=== PATIENT | female | born 1940 | race Caucasian/White ===

== ENCOUNTER 2025-03-29 13:21 | Outpatient (OUT) | payer MEDICARE, SELFPAY ==
--- NOTE | 2025-03-29 14:00 | CA_ITS ---
Patient Name: HELENA MEJIA MR#: [id number] : 1940 Exam Date: 03/29/2025 Ordering Doctor: LAURA VIZCAINO ECHOCARDIOGRAM REPORT PROCEDURE: CA ECHO DOPPLER COMPLETE INDICATIONS: Increased shortness of breath, hypertension, h/o rheumatic fever COMPARISON: None. DESCRIPTION: COMPLETE ECHOCARDIOGRAM Real-time transthoracic echocardiography with 2D, M-mode, spectral and color flow Doppler performed. QUALITY: Technical quality was good. LEFT VENTRICLE: Normal chamber size. Mild concentric left ventricular hypertrophy. Systolic function. Estimated left ventricular ejection fraction is 60-65%. LV EF: Normal left ventricular ejection fraction, (>55%). DIASTOLIC: Normal diastolic function. ATRIAL SEPTUM: Visually appears intact. LEFT ATRIUM: Mild dilatation. RIGHT ATRIUM: Mild dilatation. RIGHT VENTRICLE: Normal chamber size. Normal right ventricular systolic function. TRICUSPID VALVE: Normal mobility and thickness. No stenosis with mild regurgitation. No evidence of pulmonary hypertension. RVSP 30 mmHg MITRAL VALVE: Normal mobility and thickness. No evidence of mitral valve stenosis. Mild mitral annular calcification. Trivial mitral regurgitation. AORTIC VALVE: Normal trileaflet appearance. Thickened aortic valve. Normal leaflet mobility. No evidence of aortic valve stenosis. No aortic regurgitation. AORTIC ROOT: Normal diameter and appearance, measuring 3.0 cm. PULMONIC VALVE: Not well visualized. No stenosis. No regurgitation. PERICARDIUM: No evidence of pericardial effusion. IVC: Collapses with inspirations. IVC is normal in size. PLEURA: CONCLUSION: 1. Mild concentric left ventricular hypertrophy with normal systolic function. Estimated LVEF is 60 to 65%. 2. Normal right ventricular size and systolic function. 3. Mild biatrial dilatation. 4. Mild tricuspid regurgitation. 5. Normal diastolic function. 6. Normal right-sided pressures. Adult Echocardiography Procedure Report Left Ventricle LVEDD (3.7 - 5.6 cm): 3.56 cm LVESD (2.2 - 4.0 cm): 2.48 cm LVIVS thickness (0.6 - 1.2 cm): 1.19 cm LVPW thickness (0.5 - 1.0 cm): 1.09 cm e': 0.10 m/s E - e': 6.18 LVOT Max Gradient: 3.84 mm[Hg] LVOT Area (cm2): 0.98 m/s Peak Velocity (LVOT): 0.98 m/s Mean Velocity (LVOT): 0.68 m/s LVOT Diameter 2.05 cm Left Ventricular Ejection Fraction: 60-65 % Left Atrium LA Volume Index (2D A2C): 22.11 ml/m2 Left Atrium Systolic Dimension: 2.66 cm Mitral Valve MV E to A Ratio: 0.68 Mitral Valve A-Wave Peak Velocity: 0.93 m/s Mitral Valve E-Wave Peak Velocity: 0.64 m/s Right Ventricle Aorta AO Root Diam: 3.00 cm Aortic Valve AoV Area (Peak Ron): 2.04 cm2, 2.04 cm2 AoV Area (VTI): 2.18 cm2, 2.18 cm2 Peak Velocity(Antegrade Flow): 1.58 m/s Peak Gradient(Antegrade Flow): 10.02 mm[Hg] Mean Velocity(Antegrade Flow): 1.01 m/s Mean Gradient(Antegrade Flow): 4.77 mm[Hg] Velocity Time Integral: 37.00 cm Tricuspid Valve Peak Velocity (Regurgitant Flow): 2.60 m/s Pulmonic Valve Peak Gradient: 2.51 mm[Hg], 2.80 mm[Hg] Right Atrium Right Atrium Systolic Pressure: 49.31 ml, 49.31 ml Dictated by: Magno King M.D. on 03/29/2025 at 18:06 Approved by: Magno King M.D. on 03/29/2025 at 18:10
== END 2025-03-29 13:22 | disposition home or self-care (01) ==
PROVIDERS: PCP Family Medicine; Visit Provider Nurse Practitioner Family
DX: R06.02 Shortness of breath (principal); Z86.16 Personal history of COVID-19
CPT/HCPCS: 93306